=== PATIENT | female | born 1965 | race Caucasian/White ===

== ENCOUNTER 2021-06-02 13:54 | Emergency (ER) | payer OTHER, SELFPAY ==
[2021-06-02 14:05] VITALS: BP 132/62; PULSE 95; RESP 24; TEMP 36.6; O2SAT 94
[2021-06-02 14:06] VITALS: BP 132/62; PULSE 95; RESP 24; TEMP 36.6; O2SAT 94
--- NOTE | 2021-06-02 15:40 | ED.URI ---
HPI - URI/Sore Throat General Chief Complaint: Upper Respiratory Infection Stated Complaint: weakness/cough/sore throat Source: patient and RN notes reviewed Limitations: no limitations History of Present Illness HPI Narrative: The overweight, unvaccinated patient-- a non-smoker/nondrinker on multiple meds-- presents with other unwell family members for 1/2-week history of cough. Patient states she has had 4-day history of scratchy sore throat, cough, and mild loss of taste. No fever measured, sputum changes, earache, calf edema/pain, wheezing/sneezing, specific or precordial chest pain but she has mild shortness of breath with activity. [id number] test for Covid is rapid/strongly positive.Patient seems dismissive of suggestion for same day referral to hospital /[facility] testing Related Data Home Medications Medication Instructions Recorded Confirmed albuterol sulfate 06/02/21 atorvastatin 06/02/21 baclofen mg 06/02/21 docusate sodium [Stool Softener] PO 06/02/21 fluoxetine mg 06/02/21 hydroxyzine pamoate 06/02/21 ibuprofen 06/02/21 lamotrigine 06/02/21 loratadine mg 06/02/21 losartan 06/02/21 meloxicam 06/02/21 metformin mg PO 06/02/21 montelukast mg 06/02/21 omeprazole 06/02/21 prazosin 06/02/21 pregabalin 06/02/21 ropinirole mg 06/02/21 solifenacin mg PO 06/02/21 topiramate 06/02/21 trazodone 06/02/21 venlafaxine mg PO 06/02/21 Allergies Allergy/AdvReac Type Severity Reaction Status Date / Time morphine AdvReac Unknown PROJECTILE Verified 09/19/17 10:42 VOMITING. Review of Systems Review of Systems: General/Constitutional: No weight loss, POSSIBLE fever Eyes: N0: Redness,discharge Ears/Nose/Throat: No: Epistaxis,ear discharge Respiratory: Denies: Hemoptysis Gastrointestinal: No Vomiting, Bleeding-rectal Skin: No Lumps, eruption Neurologic: No Focal Weakness,Sz Hematologic: Denies: Petechiae/Purpura Psychiatric: No: Suicida ideationl All Other Systems: Reviewed and Negative Exam Narrative: General Appearance: fatigued appearing, obese/well nourished EYE: PERRLA, Conjunctiva clear Ears: Auditory canal normal, TM normal Nose: Rhinorrhea, Mucousal erythema Mouth/Throat: MM moist, Uvula midline, Pharyngeal erythema Neck: Supple, No adenopathy Respiratory: No respiratory distress-sl tachy; BS equal , distant decreased at bases; o/w clear to auscultation Cardiovascular: RRR, No JVD Musculoskeletal: Non tender, Normal strength Skin: Warm, Dry Neurological: A&O x3, CN II-XII intact Psychiatric: Normal mood, Normal affect Course Vital Signs Vital signs: Vital Signs Temperature 97.8 F 06/02/21 14:05 Pulse Rate 95 06/02/21 14:05 Respiratory Rate 24 H 06/02/21 14:05 Blood Pressure 132/62 06/02/21 14:05 Pulse Oximetry 94 06/02/21 14:05 Temperature 97.8 F 06/02/21 14:06 Pulse Rate 95 06/02/21 14:06 Respiratory Rate 24 H 06/02/21 14:06 Blood Pressure 132/62 06/02/21 14:06 Pulse Oximetry 94 06/02/21 14:06 MDM - URI/Sore Throat Lab Data Labs: Lab Results 06/02/21 Range/Units 15:40 POC SARS CoV-2 Ag Positive (Negative) Discharge Plan Discharge Clinical Impression: COVID-19, Viral sore throat Patient Disposition: Home, Self-Care Condition: Stable Instructions: COVID-19 (Coronavirus Disease 2019) (ED) Additional Instructions: Isolate yourself, and inform close contacts who then should quarantine Take supplement vitamins D, B, C, zinc and baby aspirin daily Call your PMD for consideration for antivirals, monoclonal antibodies Consider getting pulse ox and return for walking pulse oximetry <93% COnsider reviewing youTube 'If you get covid Dr Roe Consider allowing low fever, then begin treat for fevers > 102 with tylenol You may use OTC preparations like Flonase, cough syrups, etc. Prescriptions: New codeine-guaifenesin 10-100 mg/5 mL liquid 7.5 ml PO BID PRN (Reason: c
== END 2021-06-02 16:08 | disposition home or self-care (01) ==
PROVIDERS: Emergency Provider Emergency Medicine; PCP Physician Assistant
DX: U07.1 COVID-19 (principal)
CPT/HCPCS: 87426; 99203; C9803; G0463